=== PATIENT | male | born 1985 | race African-American/Black ===

== ENCOUNTER 2017-06-21 21:30 | Emergency (ER) | payer MEDICAID ==
[~2017-06-21] VITALS: Ht 188 cm; Wt 91.0 kg
[2017-06-22] MEDS ORDERED: HYDROCODONE/ACETAMINOPHEN 5/325MG TABLET PO ONE (01:45)
[2017-06-22 04:20] VITALS: BP 125/89
== END 2017-06-22 04:41 | disposition home or self-care (01) ==
LOC: ER 21:30
DX: S10.93XA Contusion of unspecified part of neck, initial encounter (principal); S00.83XA Contusion of other part of head, initial encounter; S09.8XXA Other specified injuries of head, initial encounter; R68.84 Jaw pain; F12.10 Cannabis abuse, uncomplicated; F17.200 Nicotine dependence, unspecified, uncomplicated; Y08.89XA Assault by other specified means, initial encounter; Y93.89 Activity, other specified; Y92.89 Other specified places as the place of occurrence of the external cause; Y99.8 Other external cause status
CPT/HCPCS: 70450; 70486; 72125; 99284

== ENCOUNTER 2017-11-24 11:16 | Emergency (ER) | payer MEDICAID, OTHER ==
[~2017-11-24] VITALS: Ht 188 cm; Wt 91.0 kg
[2017-11-24] MEDS ORDERED: AZITHROMYCIN 500 MG TABLET PO ONE (18:30)
[2017-11-24] MEDS ORDERED: LIDOCAINE HCL 1% 20ML VIAL (Pyxis) INJ MC ONE (18:30)
[2017-11-24] MEDS ORDERED: CEFTRIAXONE SODIUM 250 MG/VIAL IM ONE (18:30)
[2017-11-24 19:00] LABS: CLARITY URINE CLEAR (CLEAR); COLOR URINE YELLOW (YELLOW); KETONES URINE NEGATIVE (NEGATIVE); LEUKOCYTE ESTERASE URINE 3+ (NEGATIVE); NITRITE URINE NEGATIVE (NEGATIVE); OCCULT BLOOD URINE NEGATIVE (NEGATIVE); PH URINE 7.5 (4.5-8.0); PROTEIN URINE NEGATIVE (NEGATIVE); SPECIFIC GRAVITY URINE 1.015 (1.005-1.030); UROBILINOGEN URINE 0.2 E.U./dL (0.2-1.0)
[2017-11-24] MEDS ORDERED: TETRACAINE 0.5% OPHTH DROPS 4ML OP ONE (19:00)
[2017-11-24] MEDS ORDERED: FLUORESCEIN SODIUM 1MG/STRIP OP ONE (19:00)
[2017-11-24 19:50] VITALS: BP 120/80
[2017-11-27 04:13] LABS: CHLAMYDIA TRACHOMATIS NAA Negative (Negative); NEISSERIA GONORRHOEAE NAA Positive (Negative)
== END 2017-11-24 19:52 | disposition home or self-care (01) ==
LOC: ER 16:13
DX: N39.0 Urinary tract infection, site not specified (principal); H10.022 Other mucopurulent conjunctivitis, left eye
CPT/HCPCS: 81003; 87086; 87491; 87591; 96372; 99284; J0696; J3490

== ENCOUNTER 2021-01-08 01:56 | Inpatient (IN) | payer MEDICAID ==
[~2021-01-08] VITALS: Ht 193 cm; Wt 99.8 kg
[2021-01-08] MEDS ORDERED: MORPHINE SULFATE 4 MG/ML CPJ (NOT FOR IM USE) IV ONE ×2 (05:15→07:00)
[2021-01-08] MEDS ORDERED: ONDANSETRON HCL 4MG/2ML INJ IV ONE (05:15)
[2021-01-08 05:58] LABS: BASOPHILS % 0.3 % (0.0-2.0); CHLORIDE 105 mEq/L (98-107); EOSINOPHILS % 0.4 % (0.0-5.0); HEMOGLOBIN. 9.1 g/dL (14.0-18.0); MEAN CORPUSCULAR HEMOGLOBIN 19.8 pg (28.0-32.0); MEAN CORPUSCULAR VOLUME 65.1 fL (80.0-94.0); MEAN PLATELET VOLUME 9.1 fl (7.4-10.4); MONOCYTES % 6.5 % (2.0-8.0); NEUTROPHILS % 78.8 % (40.0-76.0); PLATELET 220 x1000/uL (130-400); RED CELL DISTRIBUTION WIDTH 18.2 % (11.6-14.6)
[2021-01-08] MEDS ORDERED: ONDANSETRON HCL 4MG/2ML INJ IV PRN (08:15)
[2021-01-08] MEDS ORDERED: NALOXONE HCL 0.4MG/ML VIAL IV PRN (08:15)
[2021-01-08] MEDS: DEXT 5%/0.45% NACL 1000ML 1,000 ML IV SCH ×2 (09:00→20:44)
[2021-01-08 11:03] VITALS: BP 128/82
[2021-01-08 12:00] VITALS: BP 127/64
[2021-01-08] MEDS: MORPHINE SULFATE 2 MG/ML CPJ (NOT FOR IM USE) IV PRN ×2 (15:34→21:59)
[2021-01-08 16:00] VITALS: BP 119/69
[2021-01-08] MEDS ORDERED: HYDR-4346 PO (17:53)
[2021-01-08 20:00] VITALS: BP 130/87
[2021-01-08] MEDS: MAGNESIUM HYDROXIDE 400MG/5ML 30ML UDC PO PRN (20:43)
[2021-01-09] VITALS: BP 124/70
[2021-01-09 04:00] VITALS: BP 129/69
[2021-01-09] MEDS: MAGNESIUM HYDROXIDE 400MG/5ML 30ML UDC PO PRN (04:38)
[2021-01-09] MEDS: DEXT 5%/0.45% NACL 1000ML 1,000 ML IV SCH ×2 (04:38→15:00)
[2021-01-09] MEDS: MORPHINE SULFATE 2 MG/ML CPJ (NOT FOR IM USE) IV PRN ×2 (04:44→09:15)
[2021-01-09 05:54] LABS: BASOPHILS % 0.8 % (0.0-2.0); EOSINOPHILS % 1.4 % (0.0-5.0); HEMATOCRIT. 31.5 % (42.0-52.0); HEMOGLOBIN. 9.5 g/dL (14.0-18.0); LYMPHOCYTES % 25.8 % (20.0-50.0); MEAN CORPUSCULAR VOLUME 66.4 fL (80.0-94.0); MEAN PLATELET VOLUME 9.4 fl (7.4-10.4); MONOCYTES % 10.4 % (2.0-8.0); NEUTROPHILS % 61.6 % (40.0-76.0); PLATELET 193 x1000/uL (130-400); RED BLOOD CELL COUNT 4.74 mill/uL (4.7-6.1); RED CELL DISTRIBUTION WIDTH 18.5 % (11.6-14.6)
[2021-01-09 06:06] LABS: CHLORIDE 105 mEq/L (98-107)
[2021-01-09 08:00] VITALS: BP 136/91
[2021-01-09] MEDS ORDERED: DOCUSATE SODIUM 100MG CAPSULE PO SCH (09:00)
[2021-01-09] MEDS ORDERED: IRON SUCROSE COMPLEX 100 MG/5 ML ML IV SCH (09:00)
[2021-01-09] MEDS ORDERED: DOCU-138 MT (10:45)
[2021-01-09] MEDS ORDERED: MOM MT (10:45)
[2021-01-09 12:00] VITALS: BP 131/85
[2021-01-09 14:02] LABS: *AMPHETAMINES SCREEN URINE NEGATIVE (NEGATIVE); *BARBITURATES SCREEN URINE NEGATIVE (NEGATIVE); *BENZODIAZEPINES SCREEN URINE NEGATIVE (NEGATIVE); *COCAINE SCREEN URINE NEGATIVE (NEGATIVE); METHADONE URINE SCREEN NEGATIVE (NEGATIVE); OPIATES URINE SCREEN PRESUMTIVE POSITIVE (NEGATIVE)
[2021-01-09 14:03] LABS: CANNABINOID URINE SCREEN PRESUMTIVE POSITIVE (NEGATIVE); PHENCYCLIDINE URINE SCREEN NEGATIVE (NEGATIVE)
[2021-01-09 14:06] VITALS: BP 131/85
[2021-01-10 18:04] LABS: PLATELET ESTIMATE NORMAL
== END 2021-01-09 16:30 | disposition home or self-care (01) | DRG 253 ==
LOC: ER 01:56 → 6EST 06:57 → ENRESERV 08:37
PROVIDERS: ADMIT Internal Medicine; ATTEND Internal Medicine
DX: K62.5 Hemorrhage of anus and rectum (principal); E87.1 Hypo-osmolality and hyponatremia; K59.00 Constipation, unspecified; K62.89 Other specified diseases of anus and rectum; D64.9 Anemia, unspecified; R74.01 Elevation of levels of liver transaminase levels; Z72.0 Tobacco use; Z71.6 Tobacco abuse counseling; Z98.890 Other specified postprocedural states
CPT/HCPCS: 36415; 80048; 80053; 80305; 85025; 99285; J2270; J2405